=== PATIENT | male | born 1950 | race Caucasian/White ===

== ENCOUNTER → 2022-03-03 10:38 | Outpatient (REF) | payer MEDICARE, SELFPAY | LOC: ANHLAB 10:38 | PROVIDERS: Visit Provider Nurse Practitioner | DX: C44.01 Basal cell carcinoma of skin of lip (principal) | CPT/HCPCS: 88305 ==

== ENCOUNTER → 2022-04-20 07:40 | Outpatient (REF) | payer MEDICARE, SELFPAY | LOC: ANHLAB 07:40 | PROVIDERS: Visit Provider Nurse Practitioner | DX: C44.01 Basal cell carcinoma of skin of lip (principal) | CPT/HCPCS: 88305; 88331 ==

== ENCOUNTER 2025-10-08 13:35 | Outpatient (CLI) | payer MEDICARE, SELFPAY ==
--- NOTE | ~2025-10-08 | PE_ITS ---
EXAMINATION: PET_PETPSMAST_PT DATE: 10/08/2025 15:46 INDICATION: Prostate cancer TECHNIQUE: 5.18 mCi of Illucix [id number]) was administered i.v. Low dose computed tomography (CT) images were acquired from the base of the brain to the base of the brain to the proximal thighs for attenuation correction and anatomic localization. Positron emission tomography (PET) images were acquired in the same distribution beginning 68 minutes after injection. Images including fused PET/CT images were reconstructed in axial, coronal, and sagittal planes. Automated exposure control technique was employed. The dose-length product was 1358.02mGy-cm. COMPARISON: None FINDINGS: Head/neck: Typical pattern of symmetric physiologic increased activity in the lacrimal, parotid and submandibular glands as well as along the mucosa of the nasal and oral cavities, pharynx and hypopharynx. Multinodular goiter without increased PSMA activity No pathologically enlarged cervical lymphadenopathy or suspicious foci of increased uptake in the visualized head or neck. Chest: Calcified right upper lobe nodule and calcified right hilar lymph nodes consistent with old granulomatous disease. 6 mm likely intrafissural lymph node along the right major fissure. Mild dependent atelectasis in both lungs. No other suspicious pulmonary nodules, pneumonia or pleural effusion. Heart size is normal. Minimal atherosclerotic coronary artery calcific location. No pericardial effusion. Thoracic aorta is normal in caliber. No pathologically enlarged or PSMA avid thoracic lymphadenopathy. Abdomen/pelvis/proximal thighs: Physiologic renal accumulation and excretion of activity in the kidneys, bladder and along portions of ureters. Prostatomegaly measuring 4.7 x 3.8 cm. There is approximately 2.5 cm region of prominent increased activity with maximal SUV of 47.6 at the central to right posterior aspect of the prostate consistent with primary prostate cancer. There is contiguous extension of additional lower intensity uptake across midline to the left side of the posterior prostate and possibly into the left seminal vesicle with maximal SUV of 24.3. There are multiple enlarged and PSA may avid retroperitoneal lymph nodes the largest in the right obturator region with maximal SUV of 3.1 x 2.7 cm with maximal SUV of 33.5. There are at least 13 additional PSA may avid lymph nodes extending from the right perirectal region cephalad along both the right and left iliac chains into the periaortic and pericaval chains the most cephalad and aortocaval lymph node just below level of the renal arteries/1.2 x 1.1 cm with maximal SUV of 7.9. Normal degree and slightly heterogenous pattern of increased uptake throughout the liver and spleen without radiologic correlate or dominant PSMA avid lesion. Photopenic defect associated with a 2.4 cm likely exophytic cyst arising from the lateral left kidney. There is also a photopenic defect associated with a 2.6 cm cyst at the lower pole of the right kidney. The gallbladder, pancreas and right adrenal gland are normal. 1.9 cm left adrenal nodule without abnormal activity most likely an adenoma. Moderate uptake scattered throughout the bowels with typical duodenal and proximal jejunal predominance and without radiologic correlate, also likely physiologic. There are few scattered colonic diverticula without adjacent from trace stranding to suggest diverticulitis. Normal appendix. Small fat-containing left inguinal hernia. No other abnormal foci of increased uptake or pathologically enlarged lymphadenopathy in the abdomen, pelvis or proximal thighs. Musculoskeletal: Small focus of increased activity with maximal SUV of 2.9 at the lateral right sixth rib. There is an additional focus of mild uptake with maximal SUV of 3.5 in the region of the lateral left eighth rib. Both are without evident corresponding lytic or blastic bone lesions. Small focus of likely extravasated activity at the site of injection at the right wrist. No other suspicious lytic, blastic or abnormally PSMA avid bone lesions. IMPRESSION: 1. Prominent region of increased activity at the right posterior aspect of the enlarged prostate which extends posteriorly across the midline to the left posterior prostate and possibly also the left seminal vesicle consistent with primary prostate cancer. 2. 14 prominently PSMA avid retroperitoneal lymph nodes in the pelvis and lower abdomen the largest measuring 3.1 x 2.7 cm in the right obturator region consistent with metastatic disease. 3. 2 foci of mild activity at the lateral right sixth lateral left eighth ribs without evident correlate on the CT imaging which raises some suspicion for early osseous metastatic disease. 4. Indeterminate 1.9 cm left adrenal nodule without PSMA against metastatic prostate cancer and statistically most likely to represent an adenoma. Would consider further evaluation with adrenal protocol pre and postcontrast MRI or CT. 5. Multinodular goiter. Reviewed, dictated and finalized at location A. [employer] IMPRESSION: 1. Prominent region of increased activity at the right posterior aspect of the enlarged prostate which extends posteriorly across the midline to the left post erior prostate and possibly also the left seminal vesicle consistent with prima ry prostate cancer. 2. 14 prominently PSMA avid retroperitoneal lymph nodes in the pelvis and lower abdomen the largest measuring 3.1 x 2.7 cm in the right obturator region consi stent with metastatic disease. 3. 2 foci of mild activity at the lateral right sixth lateral left eighth ribs without evident correlate on the CT imaging which raises some suspicion for ear ly osseous metastatic disease. 4. Indeterminate 1.9 cm left adrenal nodule without PSMA against metastatic pro state cancer and statistically most likely to represent an adenoma. Would consi frances further evaluation with adrenal protocol pre and postcontrast MRI or CT. 5. Multinodular goiter.
== END 2025-10-08 13:36 | disposition home or self-care (01) ==
PROVIDERS: Visit Provider Urology
DX: C61 Malignant neoplasm of prostate (principal); R59.0 Localized enlarged lymph nodes; E27.9 Disorder of adrenal gland, unspecified; E04.2 Nontoxic multinodular goiter
CPT/HCPCS: 78815; A9596